=== PATIENT | female | born 1980 | race Caucasian/White ===

== ENCOUNTER 2022-01-09 12:48 | Emergency (ER) | payer OTHER ==
[~2022-01-09] VITALS: Ht 152.4 cm; Wt 86.2 kg
[2022-01-09 12:54] VITALS: BP 155/96
--- NOTE | 2022-01-09 15:25 | NUR ---
JAMI RODRÍGUEZ EXAMINING PT
[2022-01-09] MEDS ORDERED: BENZ200C4 PO (15:33)
--- NOTE | 2022-01-09 15:47 | NUR ---
no nursing interventions done at this time.
[2022-01-09 15:48] VITALS: BP 155/96
--- NOTE | 2022-01-09 15:48 | NUR ---
Patient discharged with v/s stable. Written and verbal after care instructions given and explained. Patient alert, oriented and verbalized understanding of instructions. Ambulatory with steady gait. All questions addressed prior to discharge. ID band removed. Patient advised to follow up with PMD. Rx of benzonatate (sent) given. Patient educated on indication of medication including possible reaction and side effects. Opportunity to ask questions provided and answered.
== END 2022-01-09 15:48 | disposition home or self-care (01) ==
LOC: MED 12:48
DX: J40 Bronchitis, not specified as acute or chronic (principal); E11.9 Type 2 diabetes mellitus without complications; Z79.899 Other long term (current) drug therapy; Z90.710 Acquired absence of both cervix and uterus
CPT/HCPCS: 99283